=== PATIENT | male | born 1960 | race Caucasian/White ===

== ENCOUNTER 2017-04-14 13:30 | Outpatient (RCR) | payer BC | END 2017-05-19 | disposition home or self-care (01) | LOC: WSOT | DX: M25.832 Other specified joint disorders, left wrist (principal) ==

== ENCOUNTER → 2018-02-16 | Outpatient (CLI) | payer BC | LOC: COL.RAD 12:58 | DX: M50.322 Other cervical disc degeneration at C5-C6 level (principal); M48.02 Spinal stenosis, cervical region; M50.21 Other cervical disc displacement, high cervical region; R29.2 Abnormal reflex ==

== ENCOUNTER 2018-12-11 13:30 | Outpatient (RCR) | payer BC | END 2019-01-28 | disposition home or self-care (01) | LOC: WSST | DX: R41.3 Other amnesia (principal) ==